=== PATIENT | male | born 1955 | race Caucasian/White ===

== ENCOUNTER 2020-06-16 18:43 | Inpatient (IN) ==
[2020-06-16] MEDS ORDERED: *HR* Dextrose 50 % in Water (Vial) 50 ML VIAL IVP PRN (22:26)
[2020-06-16] MEDS ORDERED: Dextrose Gel 15 GM/37.5 ML TUBE PO PRN ×2 (22:26)
[2020-06-16] MEDS ORDERED: D5% in Water 1,000 ML IVC PRN (22:26)
[2020-06-16] MEDS: *HR* OxyCODONE/APAP 10/325 TABLET PO PRN (23:09)
[2020-06-16] MEDS: Gabapentin 300 MG CAPSULE PO SCH (23:09)
[2020-06-16] MEDS: Sucralfate 1 GM TABLET PO SCH (23:09)
[2020-06-17] MEDS ORDERED: NON-FORMULARY MEDICATION 1 EACH EACH (Insulin Lispro [Humalog Kwikpen U-100] 0 UNIT) SQ SCH (08:00)
[2020-06-17] MEDS: INSULIN GLARGINE SQ SCH (08:17)
[2020-06-17] MEDS: Sucralfate 1 GM TABLET PO SCH ×4 (08:35→21:03)
[2020-06-17] MEDS: Ascorbic Acid 500 MG TABLET PO SCH (08:35)
[2020-06-17] MEDS: Multivit/Ca/Min/Fe/FA 1 TAB TABLET PO SCH (08:35)
[2020-06-17] MEDS: Cyanocobalamin (B-12) 1,000 MCG TABLET PO SCH (08:35)
[2020-06-17] MEDS: Insulin LISPRO 300 UNITS/3 ML VIAL SUBQ SCH ×4 (08:35→21:04)
[2020-06-17] MEDS: Gabapentin 300 MG CAPSULE PO SCH ×3 (08:35→21:03)
[2020-06-17 08:55] LABS: Basophils % 0.3 %; Eosinophils # 0.1 K/mcL (0.0-0.6); Eosinophils % 2.8 %; Hematocrit 25.7 % (37.5-50.1); Hemoglobin 8.7 g/dL (12.9-16.9); Immature Granulocytes % 0.3 % (0-4); Lymphocytes # 0.4 K/mcL (0.6-4.6); Mean Corpuscular HGB Conc 33.9 g/dL (31.6-35.5); Mean Corpuscular Hemoglobin 31.1 pg (28.0-33.3); Mean Corpuscular Volume 91.8 fL (83.0-100.0); Mean Platelet Volume 9.2 fL (9.4-12.4); Monocytes # 0.3 K/mcL (0.0-1.3); Monocytes % 9.1 %; Neutrophils # 2.8 K/mcL (1.6-8.9); Platelet Count 122 K/mcL (140-400); Red Cell Distribution Width 16.9 % (11.5-14.5); Segmented Neutrophils % 77.5 %; White Blood Count 3.6 K/mcL (4.3-11.1)
[2020-06-17 09:10] LABS: INR 1.5; Prothrombin Time 17.3 Seconds (9.4-12.1)
[2020-06-17 09:19] LABS: Alanine Aminotransferase 13 Units/L (7-52); Albumin/Globulin Ratio 0.9 (1.1-2.2); Alkaline Phosphatase 786 Units/L (34-104); Aspartate Amino Transferase 18 Units/L (13-39); BUN/Creatinine Ratio 11 (6-26); Bilirubin,Total 2.4 mg/dL (0.3-1.0); Blood Urea Nitrogen 9 mg/dL (8-23); Calcium 7.3 mg/dL (8.6-10.3); Carbon Dioxide 23 mEq/L (23-29); Chloride 102 mEq/L (98-107); Globulin 2.2 g/dL (2.4-3.5); Glucose 151 mg/dL (70-105); Osmolality,Calculated 274 (280-300); Potassium 3.6 mEq/L (3.5-5.1); Sodium 131 mEq/L (136-145); Total Protein 4.2 g/dL (6.4-8.9); eGFR For African Americans > 60 (> 60); eGFR For Non-African Americans > 60 (> 60)
[2020-06-17] MEDS: *HR* OxyCODONE/APAP 10/325 TABLET PO PRN (18:44)
[2020-06-18] MEDS: Acetaminophen 325 MG TABLET PO SCH ×5 (06:34→23:46)
[2020-06-18] MEDS ORDERED: CREON PO PRN (08:07)
[2020-06-18] MEDS: INSULIN GLARGINE SQ SCH (08:54)
[2020-06-18] MEDS: Cyanocobalamin (B-12) 1,000 MCG TABLET PO SCH (08:54)
[2020-06-18] MEDS: CREON PO SCH ×3 (08:54→16:11)
[2020-06-18] MEDS: Gabapentin 300 MG CAPSULE PO SCH ×3 (08:54→21:00)
[2020-06-18] MEDS: Multivit/Ca/Min/Fe/FA 1 TAB TABLET PO SCH (08:54)
[2020-06-18] MEDS: Sucralfate 1 GM TABLET PO SCH ×4 (08:54→21:00)
[2020-06-18] MEDS: Insulin LISPRO 300 UNITS/3 ML VIAL SUBQ SCH ×4 (08:54→20:12)
[2020-06-18] MEDS: Ascorbic Acid 500 MG TABLET PO SCH (08:54)
[2020-06-19] MEDS: Acetaminophen 325 MG TABLET PO SCH ×4 (06:12→23:46)
[2020-06-19] MEDS: Sucralfate 1 GM TABLET PO SCH ×4 (08:53→21:08)
[2020-06-19] MEDS: Ascorbic Acid 500 MG TABLET PO SCH (08:53)
[2020-06-19] MEDS: Cyanocobalamin (B-12) 1,000 MCG TABLET PO SCH (08:53)
[2020-06-19] MEDS: Multivit/Ca/Min/Fe/FA 1 TAB TABLET PO SCH (08:54)
[2020-06-19] MEDS: CREON PO SCH ×3 (08:54→17:34)
[2020-06-19] MEDS: Gabapentin 300 MG CAPSULE PO SCH ×3 (08:54→21:08)
[2020-06-19] MEDS: Insulin LISPRO 300 UNITS/3 ML VIAL SUBQ SCH ×4 (08:56→21:08)
[2020-06-19] MEDS: INSULIN GLARGINE SQ SCH (09:04)
[2020-06-19 10:19] LABS: Basophils % 0.5 %; Eosinophils # 0.1 K/mcL (0.0-0.6); Eosinophils % 2.2 %; Hematocrit 26.8 % (37.5-50.1); Hemoglobin 8.7 g/dL (12.9-16.9); Immature Granulocytes % 0.7 % (0-4); Lymphocytes # 0.3 K/mcL (0.6-4.6); Lymphocytes % 6.2 %; Mean Corpuscular HGB Conc 32.5 g/dL (31.6-35.5); Mean Corpuscular Hemoglobin 29.3 pg (28.0-33.3); Mean Corpuscular Volume 90.2 fL (83.0-100.0); Monocytes # 0.3 K/mcL (0.0-1.3); Monocytes % 6.7 %; Neutrophils # 3.5 K/mcL (1.6-8.9); Platelet Count 134 K/mcL (140-400); Red Blood Count 2.97 M/mcL (4.19-5.50); Red Cell Distribution Width 16.8 % (11.5-14.5); Segmented Neutrophils % 83.7 %; White Blood Count 4.2 K/mcL (4.3-11.1)
[2020-06-19 10:35] LABS: Alanine Aminotransferase 11 Units/L (7-52); Albumin 1.9 g/dL (3.5-5.7); Albumin/Globulin Ratio 0.9 (1.1-2.2); Alkaline Phosphatase 673 Units/L (34-104); Aspartate Amino Transferase 16 Units/L (13-39); BUN/Creatinine Ratio 14 (6-26); Bilirubin,Total 1.8 mg/dL (0.3-1.0); Blood Urea Nitrogen 11 mg/dL (8-23); Carbon Dioxide 23 mEq/L (23-29); Chloride 102 mEq/L (98-107); Globulin 2.2 g/dL (2.4-3.5); Glucose 252 mg/dL (70-105); Osmolality,Calculated 280 (280-300); Potassium 3.7 mEq/L (3.5-5.1); Sodium 131 mEq/L (136-145); Total Protein 4.1 g/dL (6.4-8.9); eGFR For African Americans > 60 (> 60); eGFR For Non-African Americans > 60 (> 60)
[2020-06-19] MEDS: *HR* OxyCODONE/APAP 10/325 TABLET PO PRN (19:24)
[2020-06-20] MEDS: Acetaminophen 325 MG TABLET PO SCH ×2 (05:21→11:54)
[2020-06-20] MEDS: Ondansetron ODT 4 MG TAB.RAPDIS PO PRN (05:22)
[2020-06-20 07:04] LABS: Hematocrit 27.2 % (37.5-50.1); Hemoglobin 8.9 g/dL (12.9-16.9); Mean Corpuscular HGB Conc 32.7 g/dL (31.6-35.5); Mean Corpuscular Hemoglobin 29.7 pg (28.0-33.3); Mean Corpuscular Volume 90.7 fL (83.0-100.0); Mean Platelet Volume 9.4 fL (9.4-12.4); Platelet Count 138 K/mcL (140-400); Red Cell Distribution Width 16.6 % (11.5-14.5); White Blood Count 3.9 K/mcL (4.3-11.1)
[2020-06-20] MEDS: Insulin LISPRO 300 UNITS/3 ML VIAL SUBQ SCH ×4 (07:32→20:30)
[2020-06-20] MEDS: Sucralfate 1 GM TABLET PO SCH ×4 (07:40→20:33)
[2020-06-20] MEDS: CREON PO SCH ×3 (07:40→16:32)
[2020-06-20] MEDS: Gabapentin 300 MG CAPSULE PO SCH ×3 (09:04→20:33)
[2020-06-20] MEDS: Multivit/Ca/Min/Fe/FA 1 TAB TABLET PO SCH (09:04)
[2020-06-20] MEDS: Ascorbic Acid 500 MG TABLET PO SCH (09:05)
[2020-06-20] MEDS: Cyanocobalamin (B-12) 1,000 MCG TABLET PO SCH (09:05)
[2020-06-20] MEDS: INSULIN GLARGINE SQ SCH (09:05)
[2020-06-20] MEDS: *HR* OxyCODONE/APAP 10/325 TABLET PO PRN ×2 (10:45→18:19)
[2020-06-20] MEDS: Acetaminophen 325 MG TABLET PO PRN (23:53)
[2020-06-21] MEDS: *HR* OxyCODONE/APAP 10/325 TABLET PO PRN ×4 (00:50→22:24)
[2020-06-21] MEDS: Acetaminophen 325 MG TABLET PO PRN (06:37)
[2020-06-21] MEDS: Insulin LISPRO 300 UNITS/3 ML VIAL SUBQ SCH ×4 (08:52→21:09)
[2020-06-21] MEDS: Gabapentin 300 MG CAPSULE PO SCH ×3 (09:28→21:10)
[2020-06-21] MEDS: Sucralfate 1 GM TABLET PO SCH ×4 (09:28→21:10)
[2020-06-21] MEDS: Multivit/Ca/Min/Fe/FA 1 TAB TABLET PO SCH (09:28)
[2020-06-21] MEDS: Cyanocobalamin (B-12) 1,000 MCG TABLET PO SCH (09:28)
[2020-06-21] MEDS: INSULIN GLARGINE SQ SCH (09:29)
[2020-06-21] MEDS: CREON PO SCH ×3 (09:29→17:45)
[2020-06-21] MEDS: Ascorbic Acid 500 MG TABLET PO SCH (09:29)
[2020-06-21] MEDS: Ondansetron ODT 4 MG TAB.RAPDIS PO PRN (11:04)
[2020-06-21] MEDS: *HR* Heparin 5,000 UNIT/ML VIAL SQ SCH ×2 (15:49→21:10)
[2020-06-22] MEDS: *HR* Heparin 5,000 UNIT/ML VIAL SQ SCH ×2 (06:36→12:29)
[2020-06-22 07:47] VITALS: BP 89/52
[2020-06-22] MEDS: Insulin LISPRO 300 UNITS/3 ML VIAL SUBQ SCH ×2 (08:42→12:04)
[2020-06-22] MEDS: Sucralfate 1 GM TABLET PO SCH ×2 (08:42→12:29)
[2020-06-22] MEDS: Cyanocobalamin (B-12) 1,000 MCG TABLET PO SCH (08:42)
[2020-06-22] MEDS: Multivit/Ca/Min/Fe/FA 1 TAB TABLET PO SCH (08:42)
[2020-06-22] MEDS: CREON PO SCH ×2 (08:43→12:29)
[2020-06-22] MEDS: Gabapentin 300 MG CAPSULE PO SCH ×2 (08:43→14:23)
[2020-06-22] MEDS: Ascorbic Acid 500 MG TABLET PO SCH (08:43)
[2020-06-22] MEDS: INSULIN GLARGINE SQ SCH (08:51)
[2020-06-22] MEDS: Ondansetron ODT 4 MG TAB.RAPDIS PO PRN (11:08)
[2020-06-22] MEDS: *HR* OxyCODONE/APAP 10/325 TABLET PO PRN (12:29)
== END 2020-06-22 15:40 | disposition home health service (06) | DRG 945 ==
LOC: INPPIK 21:16
PROVIDERS: ADMIT Family Medicine; ATTEND Family Medicine